=== PATIENT | male | born 1955 | race African-American/Black ===

== ENCOUNTER 2018-12-01 05:04 | Emergency (ER) | payer BC, OTHER ==
[~2018-12-01] VITALS: Ht 182.9 cm; Wt 113.4 kg
--- NOTE | 2018-12-01 05:20 | PHYS DOC ---
Past History Past Medical History: CAD, CVA, Diabetes, Hypertension, Stroke, Other (CJ BOWERS DO) Past Surgical History: Pacemaker, Other (CJ BOWERS DO) Smoking: Non-smoker Alcohol Use: Occasionally Drug Use: None (CJ BOWERS DO) Adult General HPI HPI Patient is a 63-year-old male presents complaining of left-sided low back pain. It has been present for approximately the past 2 weeks, became acutely worse t onight when he got up from bed, sat down temporarily and then started to brush his teeth. Increased pain with movement. No loss of bowel or bladder control. No fever. No history of injection drug use. No personal history of cancer. Pain is severe. Patient is on meloxicam for his chronic low back pain but this is different and worse than his usual pain. He has a remote history, approximately 5 years ago, of having steroid injection. No back surgery.[] (CJ BOWERS DO) Review of Systems Review of Systems Constitutional: Denies fever or chills [] Eyes: Denies change in visual acuity, redness, or eye pain [] HENT: Denies nasal congestion or sore throat [] Respiratory: Denies cough or shortness of breath [] Cardiovascular: No chest pain or palpitations[] GI: Denies abdominal pain, nausea, vomiting, bloody stools or diarrhea [] : Denies dysuria or hematuria [] Musculoskeletal: See history of present illness[] Integument: Denies rash or skin lesions [] Neurologic: Denies headache, focal weakness or sensory changes [] Endocrine: Denies polyuria or polydipsia [] All other systems were reviewed and found to be within normal limits, except as documented in this note. (CJ BOWERS DO) Allergies Allergies Allergies Coded Allergies Type Severity Reaction Last Updated Verified Sulfa (Sulfonamide Antibiotics) Allergy Intermediate 06/05/14 No tramadol Allergy Intermediate 06/05/14 No (CJ BOWERS DO) Physical Exam Physical Exam Constitutional: Well developed, well nourished, mild discomfort, non-toxic appearance. [] HENT: Normocephalic, atraumatic, bilateral external ears normal, oropharynx moist, no oral exudates, nose normal. [] Eyes: PERRLA, EOMI, conjunctiva normal, no discharge. [] Neck: Normal range of motion, no tenderness, supple, no stridor. [] Cardiovascular:Heart rate regular rhythm, no murmur [] Lungs & Thorax: Bilateral breath sounds clear to auscultation [] Abdomen: Bowel sounds normal, soft, no tenderness, no masses, no pulsatile masses. [] Skin: Warm, dry, no erythema, no rash. [] Back: Left-sided lumbar paraspinal musculature tenderness to palpation. There is spasm present. No specific midline tenderness to palpation. Decreased range of motion secondary to pain. Patient underwent an willing/unable to walk due to discomfort so unable to evaluate his gait., no CVA tenderness. [] Extremities: No tenderness, no cyanosis, no clubbing, ROM intact, no edema. [] Neurologic: Alert and oriented X 3, normal motor function, normal sensory function, no focal deficits noted. [] Psychologic: Affect normal, judgement normal, mood normal. [] (CJ BOWERS DO) EKG EKG [] (CJ BOWERS DO) Radiology/Procedures Radiology/Procedures [] (CJ BOWERS DO) Course & Med Decision Making Course & Med Decision Making Pertinent Labs and Imaging studies reviewed. (See chart for details) D course: Patient arrived, was placed in bed, and tolerated exam well. IV access was established, laboratory testing was obtained, she was transported to and from [place] with any complications. He was given pain medicine. Additional history reveals that he took Boniva around 2 AM today, prior to the acute onset of worsening discomfort. At the time of this dictation laboratory testing and imaging is in process. Patient care endorsed to the daytime physician at 6 AM.[] (CJ BOWERS DO) Course & Med Decision Making H&P repeated by this physician. I agree with the previous assessment. No neurologic deficits on exam. Labs, and imaging reviewed. Symptoms improved with tx. Recommend supportive care and close PCP follow up. . (CONNOR GEE DO) [place] Disclaimer Dragon Disclaimer This electronic medical record was generated, in whole or in part, using a voice recognition dictation system. (CJ BOWERS DO) Departure Departure: Impression: Primary Impression: Back pain Disposition: 01 HOME, SELF-CARE Condition: STABLE Scripts Cyclobenzaprine Hcl (CYCLOBENZAPRINE HCL) 10 Mg Tablet 1 TAB PO TID, #30 TAB Prov: CONNOR GEE DO 12/01/18 Hydrocodone Bit/Acetaminophen (NORCO 10-325 TABLET) 1 Each Tablet 1 TAB PO TID, #20 TAB Prov: CONNOR GEE DO 12/01/18 CJ BOWERS DO Dec 01, 2018 05:20 CONNOR GEE DO Dec 01, 2018 06:49
[2018-12-01] MEDS ORDERED: ORPHENADRINE CITRATE 60 MG/2 ML VIAL. ONE (05:23)
[2018-12-01] MEDS ORDERED: KETOROLAC 15 MG/ML VIAL. ONE (05:23)
[2018-12-01] MEDS ORDERED: ORPHENADRINE CITRATE 60 MG/2 ML VIAL. IV ONE (05:30)
[2018-12-01] MEDS ORDERED: KETOROLAC 15 MG/ML VIAL. IV ONE (05:30)
[2018-12-01 05:54] LABS: BASO # 0.1 x10^3/uL (0.0-0.2); BASO % 1 % (0-3); EOS # 0.2 x10^3/uL (0.0-0.7); EOS % 3 % (0-3); HEMATOCRIT 42.6 % (39.0-53.0); HEMOGLOBIN 14.4 g/dL (13.0-17.5); LYMPH # 2.9 x10^3/uL (1.0-4.8); LYMPH % 39 % (24-48); MEAN CORPUSCULAR HEMOGLOBIN 28 pg (25-35); MEAN CORPUSCULAR HGB CONC 34 g/dL (31-37); MEAN CORPUSCULAR VOLUME 83 fL (79-100); MONO # 0.6 x10^3/uL (0.0-1.1); MONO % 8 % (0-9); NEUT # 3.6 x10^3uL (1.8-7.7); NEUT % 49 % (31-73); PLATELET COUNT 320 x10^3/uL (140-400); RED BLOOD COUNT 5.12 x10^6/uL (4.30-5.70); RED CELL DISTRIBUTION WIDTH 15.6 % (11.5-14.5); WHITE BLOOD COUNT 7.4 x10^3/uL (4.0-11.0)
[2018-12-01 05:58] LABS: CLARITY,URINE CLEAR; COLOR,URINE YELLOW
[2018-12-01 05:59] LABS: BACTERIA,URINE 0 /HPF (0-FEW); BILIRUBIN,URINE NEG (NEG); GLUCOSE,URINE NEG (NEG); NITRITE,URINE NEG (NEG); RBC,URINE 0 /HPF (0-2); SQUAMOUS EPITHELIAL CELL,UR FEW /LPF; UROBILINOGEN,URINE 0.2 mg/dL (0.2 mg/dL); WBC,URINE OCC /HPF (0-4)
[2018-12-01 06:00] LABS: CREATININE 1.6 mg/dL (0.7-1.3); GFR 53.4; POTASSIUM 3.7 mmol/L (3.5-5.1)
[2018-12-01 06:00] LABS: SPERM,URINE PRESENT /HPF
[2018-12-01 06:10] VITALS: BP 129/73
--- NOTE | 2018-12-01 06:19 | RAD ---
CT lumbar spine without contrast. HISTORY: Low back pain Axial CT images were obtained to the lumbar spine. Sagittal and coronal reconstructed images were reviewed. There is degenerative spondylolisthesis at L4-5. There is facet arthritis at L4-5. There is no acute fracture in the lumbar spine. The T12-L1, L1-2, L2-3 and L3-4 discs are all unremarkable without spinal stenosis or foraminal stenosis. There is moderate spinal stenosis at L4-5 secondary to the spondylolisthesis. There is bulging of the disc or small protrusion at L5-S1 without spinal stenosis. Foraminal stenosis at L4-5. There is no acute fracture. IMPRESSION: 1. Facet arthritis with degenerative spondylolisthesis L4-5. 2. Spinal stenosis L4-5. 3. Bulging of the disc at L5-S1. PQRS Compliance Statement: One or more of the following individualized dose reduction techniques were utilized for this examination: 1. Automated exposure control 2. Adjustment of the mA and/or kV according to patient size 3. Use of iterative reconstruction technique Electronically signed by: Bobby Rodgers MD (12/01/2018 6:17 AM) [id number]
[2018-12-01] MEDS ORDERED: HYDR-3136 PO (06:45)
[2018-12-01] MEDS ORDERED: CYCL-331 PO (06:45)
[2018-12-01] MEDS ORDERED: MORPHINE SULFATE 4 MG/ML DISP.SYRIN. IV ONE (07:00)
== END 2018-12-01 07:18 | disposition home or self-care (01) ==
LOC: ER 05:04
DX: G89.29 Other chronic pain (principal); M54.5 Low back pain; I25.10 Atherosclerotic heart disease of native coronary artery without angina pectoris; Z86.73 Personal history of transient ischemic attack (TIA), and cerebral infarction without residual deficits; E11.9 Type 2 diabetes mellitus without complications; I10 Essential (primary) hypertension; Z95.0 Presence of cardiac pacemaker; Z88.2 Allergy status to sulfonamides; Z88.6 Allergy status to analgesic agent
CPT/HCPCS: 36415; 72131; 80048; 81001; 85025; 96374; 96375; 99285; J1885; J2270; J2360